=== PATIENT | female | born 1985 | race Two or more races ===

== ENCOUNTER 2020-04-02 17:17 | Inpatient (IN) | payer MEDICAID ==
[2020-04-02] MEDS ORDERED: ZOLPIDEM TARTRATE 10 MG TABLET PO PRN (20:15)
[2020-04-02] MEDS: HALOPERIDOL 10 MG TABLET PO SCH (22:16)
[2020-04-02 22:21] VITALS: BP 95/59
[2020-04-03 01:09] VITALS: BP 101/68
[2020-04-03] MEDS ORDERED: BENZOCAINE/MENTHOL LOZENGE PO PRN (09:00)
[2020-04-03] MEDS ORDERED: ONDANSETRON HCL 4 MG TABLET PO PRN (09:00)
[2020-04-03] MEDS ORDERED: MAG HYDROX/AL HYDROX/SIMETH ES 30 ML SUSPENSION UDCUP PO PRN (09:00)
[2020-04-03] MEDS ORDERED: PETROLATUM,WHITE 28 GM JELLY TP PRN (09:00)
[2020-04-03] MEDS ORDERED: OMEPRAZOLE 20 MG CAPSULE PO PRN (09:00)
[2020-04-03] MEDS ORDERED: BACITRACIN 28 GM OINTMENT TP PRN (09:00)
[2020-04-03] MEDS ORDERED: IBUPROFEN 600 MG TABLET PO PRN (09:00)
[2020-04-03] MEDS ORDERED: DOCUSATE SODIUM 100 MG CAPSULE PO PRN (09:00)
[2020-04-03] MEDS ORDERED: MAGNESIUM HYDROXIDE SUSPENSION 30 ML UDCUP PO PRN (09:00)
[2020-04-03] MEDS ORDERED: LOPERAMIDE HCL 2 MG CAPSULE PO PRN (09:00)
[2020-04-03] MEDS ORDERED: CloNIDine HCL 0.1 MG TABLET PO PRN (09:00)
[2020-04-03] MEDS: DIVALPROEX SODIUM 500 MG DR TABLET PO SCH ×2 (09:00→16:42)
[2020-04-03] MEDS ORDERED: ALBUTEROL SULFATE HFA 90 MCG/PUFF 8 GM INHALER IH PRN (09:00)
[2020-04-03] MEDS: LITHIUM CARBONATE 300 MG CAPSULE PO SCH ×2 (09:00→16:42)
[2020-04-03] MEDS ORDERED: DiphenhydrAMINE HCL 50 MG/ML VIAL ONE (16:25)
[2020-04-03] MEDS ORDERED: LORazepam 2 MG/ML VIAL ONE (16:25)
[2020-04-03] MEDS ORDERED: DiphenhydrAMINE HCL 50 MG/ML VIAL IM ONE (16:30)
[2020-04-03] MEDS ORDERED: HALOPERIDOL LACTATE 5 MG/ML VIAL IM ONE (16:30)
[2020-04-03] MEDS ORDERED: LORazepam 2 MG/ML VIAL IM ONE (16:30)
[2020-04-03 17:32] VITALS: BP 112/71
[2020-04-03] MEDS: HALOPERIDOL 10 MG TABLET PO SCH (21:00)
[2020-04-04] MEDS: LITHIUM CARBONATE 300 MG CAPSULE PO SCH ×2 (07:42→17:45)
[2020-04-04] MEDS: DIVALPROEX SODIUM 500 MG DR TABLET PO SCH ×2 (07:42→17:44)
[2020-04-04 08:19] VITALS: BP 114/73
[2020-04-04] MEDS: HALOPERIDOL 5 MG TABLET PO PRN (09:05)
[2020-04-04] MEDS: LORazepam 2 MG TABLET PO PRN (09:06)
[2020-04-04 16:17] VITALS: BP 117/69
[2020-04-04] MEDS: HALOPERIDOL 10 MG TABLET PO SCH (21:00)
[2020-04-05 01:44] VITALS: BP 110/65
[2020-04-05 07:28] LABS: BASOPHILS % (AUTO) 0.6 % (0.0-2.0); EOSINOPHILS % (AUTO) 1.4 % (1.0-6.0); HEMATOCRIT 35.1 % (36-46); HEMOGLOBIN 12.3 g/dL (12.0-16.0); LYMPHOCYTES # (AUTO) 1.3 K/uL (1.0-4.8); LYMPHOCYTES % (AUTO) 24.7 % (22.0-44.0); MEAN CORPUSCULAR HEMOGLOBIN 34.2 pg (26.0-34.0); MEAN CORPUSCULAR HGB CONC 35.1 G/dL (31.0-37.0); MEAN CORPUSCULAR VOLUME 97 fL (80-100); MONOCYTES # (AUTO) 0.4 K/uL (0.1-1.0); MONOCYTES % (AUTO) 7.3 % (2.0-9.0); NEUTROPHILS # (AUTO) 3.4 K/uL (1.8-7.7); PLATELET COUNT (AUTO) 346 K/uL (150-450); RED BLOOD CELL COUNT(AUTO) 3.61 MIL/uL (4.00-5.20); RED CELL DISTRIBUTION WIDTH 13.8 % (11.5-14.5)
[2020-04-05 08:07] LABS: ALANINE AMINOTRANSFERASE 35 U/L (12-78); ALBUMIN 3.2 g/dL (3.4-5.0); ALKALINE PHOSPHATASE 71 U/L (46-116); ANION GAP 7 mmol/L (8-16); ASPARTATE AMINOTRANSFERASE 18 U/L (15-37); BILIRUBIN,TOTAL 0.3 mg/dL (0.1-1.0); CARBON DIOXIDE 28 mmol/L (22-29); CHLORIDE 104 mmol/L (98-107); CREATINE KINASE, TOTAL ONLY 98 U/L (26-192); CREATININE 0.67 mg/dL (0.60-1.30); GLOMERULAR FILTR. RATE CALC > 60 mL/min (>60); GLUCOSE,RANDOM 94 mg/dL (70-110); PHOSPHORUS 3.9 mg/dL (2.5-4.9); POTASSIUM 4.5 mmol/L (3.5-5.1); SODIUM SERUM 139 mmol/L (136-145); TOTAL PROTEIN, SERUM 6.7 g/dL (6.4-8.2); UREA NITROGEN, BLOOD 22 mg/dL (7-18)
[2020-04-05 08:08] VITALS: BP 114/72
[2020-04-05] MEDS: LORazepam 2 MG TABLET PO PRN (08:08)
[2020-04-05] MEDS: LITHIUM CARBONATE 300 MG CAPSULE PO SCH ×2 (08:08→16:23)
[2020-04-05] MEDS: DIVALPROEX SODIUM 500 MG DR TABLET PO SCH (08:08)
[2020-04-05] MEDS: HALOPERIDOL 5 MG TABLET PO PRN (08:08)
[2020-04-05] MEDS ORDERED: RisperiDONE 3 MG TABLET PO SCH (09:00)
[2020-04-05 16:04] VITALS: BP 112/78
[2020-04-05] MEDS: VALPROIC ACID 250 MG/5 ML SYRUP UDCUP PO SCH (16:22)
[2020-04-05] MEDS: HALOPERIDOL 10 MG TABLET PO SCH (20:44)
[2020-04-05] MEDS: OLANZapine 5 MG RAPDIS TABLET PO SCH (20:45)
[2020-04-06 00:54] VITALS: BP 110/73
[2020-04-06 08:12] VITALS: BP 106/58
[2020-04-06] MEDS: LITHIUM CARBONATE 300 MG CAPSULE PO SCH ×2 (08:59→16:37)
[2020-04-06] MEDS: VALPROIC ACID 250 MG/5 ML SYRUP UDCUP PO SCH ×2 (08:59→16:37)
[2020-04-06] MEDS: LORazepam 2 MG TABLET PO PRN (11:35)
[2020-04-06 16:14] VITALS: BP 109/66
[2020-04-06] MEDS: HALOPERIDOL 10 MG TABLET PO SCH (20:31)
[2020-04-06] MEDS: OLANZapine 5 MG RAPDIS TABLET PO SCH (20:31)
[2020-04-07 00:36] VITALS: BP 102/62
[2020-04-07 08:15] VITALS: BP 109/60
[2020-04-07] MEDS ORDERED: HALOPERIDOL LACTATE 5 MG/ML VIAL ONE (08:40)
[2020-04-07] MEDS ORDERED: DiphenhydrAMINE HCL 50 MG/ML VIAL ONE (08:40)
[2020-04-07] MEDS ORDERED: HALOPERIDOL LACTATE 5 MG/ML VIAL IM ONE (08:45)
[2020-04-07] MEDS ORDERED: DiphenhydrAMINE HCL 50 MG/ML VIAL IM ONE (08:45)
[2020-04-07] MEDS ORDERED: LORazepam 2 MG/ML VIAL IM ONE (08:45)
[2020-04-07] MEDS: LORazepam 2 MG TABLET PO PRN (08:53)
[2020-04-07] MEDS: LITHIUM CARBONATE 300 MG CAPSULE PO SCH ×2 (08:53→17:00)
[2020-04-07] MEDS: VALPROIC ACID 250 MG/5 ML SYRUP UDCUP PO SCH ×2 (08:53→17:00)
[2020-04-07 16:20] VITALS: BP 110/70
[2020-04-07] MEDS: HALOPERIDOL 10 MG TABLET PO SCH (20:07)
[2020-04-07] MEDS: OLANZapine 5 MG RAPDIS TABLET PO SCH (20:07)
[2020-04-08 01:02] VITALS: BP 104/73
[2020-04-08] MEDS ORDERED: LORazepam 2 MG/ML VIAL IM ONE ×2 (08:00→19:30)
[2020-04-08] MEDS ORDERED: DiphenhydrAMINE HCL 50 MG/ML VIAL IM ONE ×2 (08:00→19:30)
[2020-04-08] MEDS ORDERED: HALOPERIDOL LACTATE 5 MG/ML VIAL IM ONE ×2 (08:00→19:30)
[2020-04-08 08:03] VITALS: BP 138/84
[2020-04-08] MEDS: LITHIUM CARBONATE 300 MG CAPSULE PO SCH ×3 (08:40→17:00)
[2020-04-08] MEDS: VALPROIC ACID 250 MG/5 ML SYRUP UDCUP PO SCH ×2 (09:00→17:00)
[2020-04-08 16:02] VITALS: BP 115/65
[2020-04-08 19:30] VITALS: BP 95/56
[2020-04-08] MEDS: HALOPERIDOL 10 MG TABLET PO SCH (20:24)
[2020-04-08] MEDS: OLANZapine 5 MG RAPDIS TABLET PO SCH (20:24)
[2020-04-09 08:31] VITALS: BP 109/68
[2020-04-09] MEDS: VALPROIC ACID 250 MG/5 ML SYRUP UDCUP PO SCH ×2 (09:00→16:35)
[2020-04-09] MEDS: LITHIUM CARBONATE 300 MG CAPSULE PO SCH ×2 (09:00→16:35)
[2020-04-09] MEDS ORDERED: HALOPERIDOL LACTATE 5 MG/ML VIAL IM ONE (13:30)
[2020-04-09] MEDS ORDERED: LORazepam 2 MG/ML VIAL IM ONE (13:30)
[2020-04-09] MEDS ORDERED: DiphenhydrAMINE HCL 50 MG/ML VIAL IM ONE (13:30)
[2020-04-09] MEDS: ACETAMINOPHEN 325 MG TABLET PO PRN (14:30)
[2020-04-09 16:07] VITALS: BP 107/62
[2020-04-09] MEDS: OLANZapine 5 MG RAPDIS TABLET PO SCH (20:08)
[2020-04-09] MEDS: HALOPERIDOL 10 MG TABLET PO SCH (20:08)
[2020-04-10 07:00] VITALS: BP 112/70
[2020-04-10 08:04] VITALS: BP 113/67
[2020-04-10] MEDS: VALPROIC ACID 250 MG/5 ML SYRUP UDCUP PO SCH ×2 (09:00→17:00)
[2020-04-10] MEDS: LITHIUM CARBONATE 300 MG CAPSULE PO SCH ×2 (09:00→17:00)
[2020-04-10] MEDS: LORazepam 2 MG TABLET PO PRN (11:03)
[2020-04-10 16:03] VITALS: BP 107/65
[2020-04-10] MEDS: OLANZapine 5 MG RAPDIS TABLET PO SCH (20:34)
[2020-04-10] MEDS: HALOPERIDOL 10 MG TABLET PO SCH (20:34)
[2020-04-11 01:27] VITALS: BP 106/68
[2020-04-11 08:12] VITALS: BP 115/72
[2020-04-11] MEDS: LITHIUM CARBONATE 300 MG CAPSULE PO SCH ×3 (09:00→17:00)
[2020-04-11] MEDS: VALPROIC ACID 250 MG/5 ML SYRUP UDCUP PO SCH ×3 (09:00→17:00)
[2020-04-11] MEDS: LORazepam 2 MG TABLET PO PRN (09:56)
[2020-04-11 17:30] VITALS: BP 109/68
[2020-04-11] MEDS: HALOPERIDOL 10 MG TABLET PO SCH (21:00)
[2020-04-11] MEDS: OLANZapine 5 MG RAPDIS TABLET PO SCH (21:00)
[2020-04-12 00:41] VITALS: BP 107/62
[2020-04-12] MEDS: VALPROIC ACID 250 MG/5 ML SYRUP UDCUP PO SCH ×2 (09:00→17:03)
[2020-04-12] MEDS: LITHIUM CARBONATE 300 MG CAPSULE PO SCH ×2 (09:00→16:58)
[2020-04-12] MEDS ORDERED: LORazepam 2 MG/ML VIAL ONE (09:06)
[2020-04-12] MEDS ORDERED: HALOPERIDOL LACTATE 5 MG/ML VIAL ONE (09:06)
[2020-04-12] MEDS ORDERED: DiphenhydrAMINE HCL 50 MG/ML VIAL ONE (09:06)
[2020-04-12 09:08] VITALS: BP 102/72
[2020-04-12] MEDS ORDERED: LORazepam 2 MG/ML VIAL IM ONE (09:15)
[2020-04-12] MEDS ORDERED: DiphenhydrAMINE HCL 50 MG/ML VIAL IM ONE (09:15)
[2020-04-12] MEDS ORDERED: HALOPERIDOL LACTATE 5 MG/ML VIAL IM ONE (09:15)
[2020-04-12 16:10] VITALS: BP 107/66
[2020-04-12] MEDS: LORazepam 2 MG TABLET PO PRN (16:50)
[2020-04-12] MEDS: OLANZapine 5 MG RAPDIS TABLET PO SCH (20:43)
[2020-04-12] MEDS: HALOPERIDOL 10 MG TABLET PO SCH (20:43)
[2020-04-13] MEDS ORDERED: DiphenhydrAMINE HCL 50 MG/ML VIAL IM ONE (07:30)
[2020-04-13] MEDS ORDERED: LORazepam 2 MG/ML VIAL IM ONE (07:30)
[2020-04-13] MEDS ORDERED: HALOPERIDOL LACTATE 5 MG/ML VIAL IM ONE (07:30)
[2020-04-13] MEDS: VALPROIC ACID 250 MG/5 ML SYRUP UDCUP PO SCH ×2 (09:00→16:51)
[2020-04-13] MEDS: LITHIUM CARBONATE 300 MG CAPSULE PO SCH ×2 (09:00→16:51)
[2020-04-13 17:29] VITALS: BP 109/67
[2020-04-13] MEDS: OLANZapine 5 MG RAPDIS TABLET PO SCH (20:30)
[2020-04-13] MEDS: HALOPERIDOL 10 MG TABLET PO SCH (20:30)
[2020-04-14 01:52] VITALS: BP 108/70
[2020-04-14 08:04] VITALS: BP 129/69
[2020-04-14] MEDS: VALPROIC ACID 250 MG/5 ML SYRUP UDCUP PO SCH ×2 (08:41→17:00)
[2020-04-14] MEDS: LITHIUM CARBONATE 300 MG CAPSULE PO SCH ×3 (08:41→19:34)
[2020-04-14 16:04] VITALS: BP 121/80
[2020-04-14] MEDS: ACETAMINOPHEN 325 MG TABLET PO PRN (18:17)
[2020-04-14] MEDS: LORazepam 2 MG TABLET PO PRN (19:33)
[2020-04-14] MEDS: HALOPERIDOL 10 MG TABLET PO SCH (20:08)
[2020-04-14] MEDS: OLANZapine 5 MG RAPDIS TABLET PO SCH (21:00)
[2020-04-15 08:34] VITALS: BP 123/76
[2020-04-15] MEDS: VALPROIC ACID 250 MG/5 ML SYRUP UDCUP PO SCH (09:00)
[2020-04-15] MEDS: LITHIUM CARBONATE 300 MG CAPSULE PO SCH (09:00)
[2020-04-15] MEDS ORDERED: VALP250C48 PO (11:09)
[2020-04-15] MEDS ORDERED: OLAN5TAB40 PO (11:09)
[2020-04-15] MEDS ORDERED: HALO10 PO (11:09)
[2020-04-15] MEDS ORDERED: LITH300C3 PO (11:09)
== END 2020-04-15 11:35 | disposition home or self-care (01) | DRG 750 ==
LOC: B3A 20:14
PROVIDERS: ADMIT Psychiatry & Neurology Psychiatry; ATTEND Psychiatry & Neurology Psychiatry
DX: F25.9 Schizoaffective disorder, unspecified (principal); M62.82 Rhabdomyolysis; F41.9 Anxiety disorder, unspecified; G47.00 Insomnia, unspecified; K59.00 Constipation, unspecified; F15.10 Other stimulant abuse, uncomplicated; E87.6 Hypokalemia; R74.02 Elevation of levels of lactic acid dehydrogenase [LDH]; K21.9 Gastro-esophageal reflux disease without esophagitis; Z59.0 Homelessness; Z79.899 Other long term (current) drug therapy
CPT/HCPCS: 80074; 83735; 84100; 87081; J1200; J1630; J2060

== ENCOUNTER 2020-04-30 13:09 | Inpatient (IN) | payer MEDICAID ==
[~2020-04-30 13:09] MED LIST: HALO10 PO; LITH300C3 PO; OLAN5TAB40 PO; VALP250C48 PO
[2020-04-30] MEDS ORDERED: ZOLPIDEM TARTRATE 10 MG TABLET PO PRN (14:45)
[2020-04-30] MEDS ORDERED: HALOPERIDOL 5 MG TABLET PO PRN (14:45)
[2020-04-30] MEDS ORDERED: LORazepam 2 MG/ML VIAL ONE (16:40)
[2020-04-30] MEDS ORDERED: HALOPERIDOL LACTATE 5 MG/ML VIAL ONE (16:40)
[2020-04-30] MEDS ORDERED: DiphenhydrAMINE HCL 50 MG/ML VIAL ONE (16:40)
[2020-04-30] MEDS ORDERED: LORazepam 2 MG/ML VIAL IM ONE (16:45)
[2020-04-30] MEDS ORDERED: HALOPERIDOL LACTATE 5 MG/ML VIAL IM ONE (16:45)
[2020-04-30] MEDS ORDERED: DiphenhydrAMINE HCL 50 MG/ML VIAL IM ONE (16:45)
[2020-04-30] MEDS: VALPROIC ACID 250 MG CAPSULE PO SCH (17:00)
[2020-04-30] MEDS: LITHIUM CARBONATE 300 MG CAPSULE PO SCH (17:00)
[2020-04-30] MEDS: HALOPERIDOL 10 MG TABLET PO SCH (17:00)
[2020-04-30 17:11] VITALS: BP 110/70
[2020-04-30] MEDS ORDERED: INFLUENZA VIRUS VACCINE QVS 2020-21 (6MO+)/PF 60 MCG/0.5 ML SYRINGE IM ONE (17:15)
[2020-04-30] MEDS ORDERED: BACITRACIN 28 GM OINTMENT TP PRN (23:30)
[2020-04-30] MEDS ORDERED: ONDANSETRON HCL 4 MG TABLET PO PRN (23:30)
[2020-04-30] MEDS ORDERED: BENZOCAINE/MENTHOL LOZENGE PO PRN (23:30)
[2020-04-30] MEDS ORDERED: ALBUTEROL SULFATE HFA 90 MCG/PUFF 8 GM INHALER IH PRN (23:30)
[2020-04-30] MEDS ORDERED: PETROLATUM,WHITE 28 GM JELLY TP PRN (23:30)
[2020-04-30] MEDS ORDERED: MAGNESIUM HYDROXIDE SUSPENSION 30 ML UDCUP PO PRN (23:30)
[2020-04-30] MEDS ORDERED: OMEPRAZOLE 20 MG CAPSULE PO PRN (23:30)
[2020-04-30] MEDS ORDERED: ACETAMINOPHEN 325 MG TABLET PO PRN (23:30)
[2020-04-30] MEDS ORDERED: DOCUSATE SODIUM 100 MG CAPSULE PO PRN (23:30)
[2020-04-30] MEDS ORDERED: CloNIDine HCL 0.1 MG TABLET PO PRN (23:30)
[2020-05-01 05:46] VITALS: BP 102/63
[2020-05-01 08:05] VITALS: BP 94/59
[2020-05-01] MEDS: VALPROIC ACID 250 MG CAPSULE PO SCH ×2 (08:46→15:53)
[2020-05-01] MEDS: HALOPERIDOL 10 MG TABLET PO SCH ×2 (08:46→15:54)
[2020-05-01] MEDS: LITHIUM CARBONATE 300 MG CAPSULE PO SCH ×2 (08:46→15:54)
[2020-05-01] MEDS: BACITRACIN 28 GM OINTMENT TP SCH ×2 (08:49→15:53)
[2020-05-01] MEDS: LORazepam 2 MG TABLET PO PRN ×2 (08:50→16:25)
[2020-05-01] MEDS: MAG HYDROX/AL HYDROX/SIMETH ES 30 ML SUSPENSION UDCUP PO PRN (13:38)
[2020-05-01] MEDS: LOPERAMIDE HCL 2 MG CAPSULE PO PRN ×2 (15:54→19:26)
[2020-05-01 16:12] VITALS: BP 101/61
[2020-05-01] MEDS: OLANZapine 5 MG RAPDIS TABLET PO SCH ×2 (19:47→19:48)
[2020-05-02 05:13] VITALS: BP 124/84
[2020-05-02] MEDS: VALPROIC ACID 250 MG CAPSULE PO SCH ×2 (08:16→16:07)
[2020-05-02] MEDS: LOPERAMIDE HCL 2 MG CAPSULE PO PRN ×2 (08:17→16:09)
[2020-05-02] MEDS: HALOPERIDOL 10 MG TABLET PO SCH ×2 (08:17→16:07)
[2020-05-02] MEDS: LITHIUM CARBONATE 300 MG CAPSULE PO SCH ×2 (08:17→16:07)
[2020-05-02 09:14] VITALS: BP 110/63
[2020-05-02] MEDS: BACITRACIN 28 GM OINTMENT TP SCH ×2 (09:33→16:11)
[2020-05-02 16:05] VITALS: BP 119/66
[2020-05-02] MEDS: LORazepam 2 MG TABLET PO PRN (16:08)
[2020-05-02] MEDS: OLANZapine 5 MG RAPDIS TABLET PO SCH (20:17)
[2020-05-03 01:29] VITALS: BP 112/76
[2020-05-03 07:37] LABS: BASOPHILS % (AUTO) 0.3 % (0.0-2.0); EOSINOPHILS % (AUTO) 1.1 % (1.0-6.0); HEMATOCRIT 37.5 % (36-46); LYMPHOCYTES # (AUTO) 1.3 K/uL (1.0-4.8); LYMPHOCYTES % (AUTO) 23.2 % (22.0-44.0); MEAN CORPUSCULAR HGB CONC 34.8 G/dL (31.0-37.0); MEAN CORPUSCULAR VOLUME 95 fL (80-100); MONOCYTES # (AUTO) 0.9 K/uL (0.1-1.0); MONOCYTES % (AUTO) 16.3 % (2.0-9.0); NEUTROPHILS # (AUTO) 3.4 K/uL (1.8-7.7); NEUTROPHILS % (AUTO) 59.1 % (40.0-70.0); PLATELET COUNT (AUTO) 309 K/uL (150-450); RED BLOOD CELL COUNT(AUTO) 3.95 MIL/uL (4.00-5.20); RED CELL DISTRIBUTION WIDTH 13.3 % (11.5-14.5)
[2020-05-03 07:46] LABS: HEMOGLOBIN A1C 4.8 % (3.8-5.6)
[2020-05-03 07:55] LABS: ALANINE AMINOTRANSFERASE 38 U/L (12-78); ALBUMIN 2.3 g/dL (3.4-5.0); ALKALINE PHOSPHATASE 95 U/L (46-116); ANION GAP 13 mmol/L (8-16); ASPARTATE AMINOTRANSFERASE 26 U/L (15-37); BILIRUBIN,TOTAL 0.2 mg/dL (0.1-1.0); CALCIUM, TOTAL 8.8 mg/dL (8.8-10.5); CARBON DIOXIDE 22 mmol/L (22-29); CHLORIDE 104 mmol/L (98-107); CHOL/HDL RATIO 2.6 (3.9-5.7); CHOLESTEROL 76 mg/dL (131-200); CREATININE 0.64 mg/dL (0.60-1.30); GLOMERULAR FILTR. RATE CALC > 60 mL/min (>60); GLUCOSE,RANDOM 94 mg/dL (70-110); HCG,QUANTITATIVE < 1 mIU/mL (0-6); HDL CHOLESTEROL 29 mg/dL (40-60); LDL CHOL (CALC.) 35 mg/dL (0-130); SODIUM SERUM 139 mmol/L (136-145); TOTAL PROTEIN, SERUM 6.7 g/dL (6.4-8.2); TRIGLYCERIDES 58 mg/dL (15-150); UREA NITROGEN, BLOOD 14 mg/dL (7-18)
[2020-05-03 08:14] VITALS: BP 110/66
[2020-05-03] MEDS: NICOTINE 14 MG/24 HOUR PATCH TD SCH (08:46)
[2020-05-03] MEDS: HALOPERIDOL 10 MG TABLET PO SCH ×2 (08:46→17:18)
[2020-05-03] MEDS: LITHIUM CARBONATE 300 MG CAPSULE PO SCH ×2 (08:48→17:18)
[2020-05-03] MEDS: VALPROIC ACID 250 MG CAPSULE PO SCH ×2 (08:48→17:18)
[2020-05-03] MEDS: LOPERAMIDE HCL 2 MG CAPSULE PO PRN (11:41)
[2020-05-03] MEDS: BACITRACIN 28 GM OINTMENT TP SCH ×2 (11:42→17:18)
[2020-05-03 17:19] VITALS: BP 89/56
[2020-05-03] MEDS ORDERED: POTASSIUM CHLORIDE 20 MEQ ER TABLET PO ONE (18:30)
[2020-05-03] MEDS: OLANZapine 5 MG RAPDIS TABLET PO SCH (20:25)
[2020-05-04 00:48] VITALS: BP_SYST 106; BP_SYST 78; BP_DIAS 60; BP_DIAS 63
[2020-05-04 08:26] VITALS: BP 104/58
[2020-05-04] MEDS: HALOPERIDOL 10 MG TABLET PO SCH ×3 (10:15→17:00)
[2020-05-04] MEDS: VALPROIC ACID 250 MG CAPSULE PO SCH ×3 (10:15→17:00)
[2020-05-04] MEDS: NICOTINE 14 MG/24 HOUR PATCH TD SCH (10:16)
[2020-05-04] MEDS: LITHIUM CARBONATE 300 MG CAPSULE PO SCH ×3 (10:16→17:00)
[2020-05-04] MEDS: LOPERAMIDE HCL 2 MG CAPSULE PO PRN ×2 (10:16→13:43)
[2020-05-04] MEDS: LORazepam 2 MG TABLET PO PRN (10:57)
[2020-05-04] MEDS: BACITRACIN 28 GM OINTMENT TP SCH (17:00)
[2020-05-04] MEDS: OLANZapine 5 MG RAPDIS TABLET PO SCH (20:20)
[2020-05-05 01:06] VITALS: BP 101/61
[2020-05-05 07:47] LABS: ANION GAP 6 mmol/L (8-16); CALCIUM, TOTAL 8.6 mg/dL (8.8-10.5); CARBON DIOXIDE 25 mmol/L (22-29); CHLORIDE 105 mmol/L (98-107); CREATININE 0.72 mg/dL (0.60-1.30); GLOMERULAR FILTR. RATE CALC > 60 mL/min (>60); GLUCOSE,RANDOM 92 mg/dL (70-110); POTASSIUM 3.7 mmol/L (3.5-5.1); SODIUM SERUM 136 mmol/L (136-145); UREA NITROGEN, BLOOD 13 mg/dL (7-18)
[2020-05-05 08:09] VITALS: BP 103/64
[2020-05-05] MEDS: LITHIUM CARBONATE 300 MG CAPSULE PO SCH ×2 (08:11→16:20)
[2020-05-05] MEDS: HALOPERIDOL 10 MG TABLET PO SCH ×2 (08:11→16:20)
[2020-05-05] MEDS: VALPROIC ACID 250 MG CAPSULE PO SCH ×2 (08:11→16:19)
[2020-05-05] MEDS: BACITRACIN 28 GM OINTMENT TP SCH ×2 (08:59→16:22)
[2020-05-05] MEDS: NICOTINE 14 MG/24 HOUR PATCH TD SCH (09:00)
[2020-05-05 16:00] VITALS: BP 100/64
[2020-05-05] MEDS: LORazepam 2 MG TABLET PO PRN (16:19)
[2020-05-05] MEDS: MAG HYDROX/AL HYDROX/SIMETH ES 30 ML SUSPENSION UDCUP PO PRN (16:39)
[2020-05-05] MEDS: OLANZapine 5 MG RAPDIS TABLET PO SCH (20:35)
[2020-05-06 01:01] VITALS: BP 102/74
[2020-05-06] MEDS: LOPERAMIDE HCL 2 MG CAPSULE PO PRN (04:12)
[2020-05-06 08:07] VITALS: BP 108/58
[2020-05-06 08:40] LABS: C.DIFF GDH ANTIGEN, Stool Negative (Negative); C.DIFF TOXINS A&B, Stool Negative (Negative)
[2020-05-06] MEDS: LITHIUM CARBONATE 300 MG CAPSULE PO SCH ×2 (08:48→16:43)
[2020-05-06] MEDS: VALPROIC ACID 250 MG CAPSULE PO SCH ×2 (08:48→16:42)
[2020-05-06] MEDS: HALOPERIDOL 10 MG TABLET PO SCH ×2 (08:49→16:42)
[2020-05-06] MEDS: BACITRACIN 28 GM OINTMENT TP SCH ×2 (08:49→16:43)
[2020-05-06] MEDS: NICOTINE 14 MG/24 HOUR PATCH TD SCH (08:49)
[2020-05-06 16:17] VITALS: BP 100/60
[2020-05-06] MEDS: OLANZapine 5 MG RAPDIS TABLET PO SCH (21:00)
[2020-05-07 01:15] VITALS: BP 102/68
[2020-05-07] MEDS: HALOPERIDOL 10 MG TABLET PO SCH ×2 (08:14→16:21)
[2020-05-07] MEDS: VALPROIC ACID 250 MG CAPSULE PO SCH ×2 (08:14→16:21)
[2020-05-07] MEDS: LITHIUM CARBONATE 300 MG CAPSULE PO SCH ×2 (08:14→16:21)
[2020-05-07 08:20] VITALS: BP 123/65
[2020-05-07] MEDS: NICOTINE 14 MG/24 HOUR PATCH TD SCH (09:00)
[2020-05-07] MEDS: BACITRACIN 28 GM OINTMENT TP SCH ×2 (09:00→16:28)
[2020-05-07 16:58] VITALS: BP 123/70
[2020-05-07] MEDS: OLANZapine 5 MG RAPDIS TABLET PO SCH (20:35)
[2020-05-07] MEDS: RIVAROXABAN 15 MG TABLET PO SCH (22:01)
[2020-05-08 00:39] VITALS: BP 114/73
[2020-05-08] MEDS: RIVAROXABAN 15 MG TABLET PO SCH ×2 (06:46→16:32)
[2020-05-08] MEDS: HALOPERIDOL 10 MG TABLET PO SCH ×2 (08:12→16:32)
[2020-05-08] MEDS: VALPROIC ACID 250 MG CAPSULE PO SCH ×2 (08:12→16:32)
[2020-05-08] MEDS: LITHIUM CARBONATE 300 MG CAPSULE PO SCH ×2 (08:12→16:32)
[2020-05-08 08:17] VITALS: BP 115/70
[2020-05-08] MEDS: BACITRACIN 28 GM OINTMENT TP SCH ×2 (08:43→16:33)
[2020-05-08] MEDS: NICOTINE 14 MG/24 HOUR PATCH TD SCH (09:00)
[2020-05-08] MEDS: IBUPROFEN 600 MG TABLET PO PRN (10:52)
[2020-05-08 16:01] VITALS: BP 115/69
[2020-05-08] MEDS: OLANZapine 5 MG RAPDIS TABLET PO SCH (20:28)
[2020-05-09 00:52] VITALS: BP 110/72
[2020-05-09] MEDS: RIVAROXABAN 15 MG TABLET PO SCH ×2 (06:28→16:06)
[2020-05-09 08:11] VITALS: BP 105/75
[2020-05-09] MEDS: HALOPERIDOL 10 MG TABLET PO SCH ×2 (08:48→16:06)
[2020-05-09] MEDS: NICOTINE 14 MG/24 HOUR PATCH TD SCH (08:48)
[2020-05-09] MEDS: VALPROIC ACID 250 MG CAPSULE PO SCH ×2 (08:48→16:05)
[2020-05-09] MEDS: LITHIUM CARBONATE 300 MG CAPSULE PO SCH ×2 (08:48→16:06)
[2020-05-09] MEDS: BACITRACIN 28 GM OINTMENT TP SCH ×2 (08:48→16:06)
[2020-05-09 16:05] VITALS: BP 103/62
[2020-05-09] MEDS: OLANZapine 5 MG RAPDIS TABLET PO SCH (20:36)
[2020-05-10 00:06] VITALS: BP 100/72
[2020-05-10] MEDS: RIVAROXABAN 15 MG TABLET PO SCH ×2 (06:43→15:50)
[2020-05-10 08:15] VITALS: BP 102/76
[2020-05-10] MEDS: NICOTINE 14 MG/24 HOUR PATCH TD SCH (08:31)
[2020-05-10] MEDS: LITHIUM CARBONATE 300 MG CAPSULE PO SCH ×2 (08:31→15:50)
[2020-05-10] MEDS: HALOPERIDOL 10 MG TABLET PO SCH ×2 (08:31→15:50)
[2020-05-10] MEDS: VALPROIC ACID 250 MG CAPSULE PO SCH ×2 (08:31→15:50)
[2020-05-10] MEDS: BACITRACIN 28 GM OINTMENT TP SCH ×2 (08:39→15:50)
[2020-05-10 16:05] VITALS: BP 106/65
[2020-05-10] MEDS: LORazepam 2 MG TABLET PO PRN (16:52)
[2020-05-10] MEDS: OLANZapine 5 MG RAPDIS TABLET PO SCH (21:00)
[2020-05-11 01:06] VITALS: BP 105/73
[2020-05-11] MEDS: IBUPROFEN 600 MG TABLET PO PRN (05:57)
[2020-05-11] MEDS: RIVAROXABAN 15 MG TABLET PO SCH ×2 (06:22→16:37)
[2020-05-11 08:02] VITALS: BP 109/67
[2020-05-11] MEDS: LITHIUM CARBONATE 300 MG CAPSULE PO SCH ×2 (08:10→16:37)
[2020-05-11] MEDS: HALOPERIDOL 10 MG TABLET PO SCH ×2 (08:10→16:37)
[2020-05-11] MEDS: VALPROIC ACID 250 MG CAPSULE PO SCH ×2 (08:10→16:37)
[2020-05-11] MEDS: NICOTINE 14 MG/24 HOUR PATCH TD SCH (09:00)
[2020-05-11 16:07] VITALS: BP 106/63
[2020-05-11] MEDS: LORazepam 2 MG TABLET PO PRN (18:45)
[2020-05-11] MEDS: OLANZapine 5 MG RAPDIS TABLET PO SCH (20:05)
[2020-05-12 00:48] VITALS: BP 116/71
[2020-05-12] MEDS: RIVAROXABAN 15 MG TABLET PO SCH ×2 (06:22→16:33)
[2020-05-12] MEDS: VALPROIC ACID 250 MG CAPSULE PO SCH ×2 (08:07→16:34)
[2020-05-12] MEDS: LITHIUM CARBONATE 300 MG CAPSULE PO SCH ×2 (08:07→16:34)
[2020-05-12] MEDS: NICOTINE 14 MG/24 HOUR PATCH TD SCH (08:07)
[2020-05-12] MEDS: HALOPERIDOL 10 MG TABLET PO SCH ×2 (08:07→16:34)
[2020-05-12 08:19] VITALS: BP 103/59
[2020-05-12] MEDS ORDERED: NICOTINE 14 MG/24 HOUR PATCH TD PRN (08:30)
[2020-05-12 16:15] VITALS: BP 100/64
[2020-05-12] MEDS: OLANZapine 5 MG RAPDIS TABLET PO SCH (21:00)
[2020-05-13 01:23] VITALS: BP 104/78
[2020-05-13] MEDS: RIVAROXABAN 15 MG TABLET PO SCH ×2 (06:41→17:17)
[2020-05-13 07:49] LABS: BASOPHILS % (AUTO) 0.5 % (0.0-2.0); EOSINOPHILS % (AUTO) 0.6 % (1.0-6.0); HEMATOCRIT 32.7 % (36-46); HEMOGLOBIN 11.2 g/dL (12.0-16.0); LYMPHOCYTES # (AUTO) 1.2 K/uL (1.0-4.8); LYMPHOCYTES % (AUTO) 16.8 % (22.0-44.0); MEAN CORPUSCULAR HEMOGLOBIN 32.8 pg (26.0-34.0); MEAN CORPUSCULAR HGB CONC 34.2 G/dL (31.0-37.0); MEAN CORPUSCULAR VOLUME 96 fL (80-100); MONOCYTES # (AUTO) 0.6 K/uL (0.1-1.0); MONOCYTES % (AUTO) 7.8 % (2.0-9.0); NEUTROPHILS # (AUTO) 5.3 K/uL (1.8-7.7); NEUTROPHILS % (AUTO) 74.3 % (40.0-70.0); PLATELET COUNT (AUTO) 441 K/uL (150-450); RED CELL DISTRIBUTION WIDTH 13.1 % (11.5-14.5)
[2020-05-13 08:04] LABS: ALANINE AMINOTRANSFERASE 19 U/L (12-78); ALBUMIN 1.9 g/dL (3.4-5.0); ALKALINE PHOSPHATASE 60 U/L (46-116); ANION GAP 6 mmol/L (8-16); ASPARTATE AMINOTRANSFERASE 15 U/L (15-37); BILIRUBIN,TOTAL 0.1 mg/dL (0.1-1.0); CALCIUM, TOTAL 8.4 mg/dL (8.8-10.5); CARBON DIOXIDE 30 mmol/L (22-29); CHLORIDE 104 mmol/L (98-107); CREATININE 0.67 mg/dL (0.60-1.30); GLOMERULAR FILTR. RATE CALC > 60 mL/min (>60); GLUCOSE,RANDOM 112 mg/dL (70-110); PHOSPHORUS 4.1 mg/dL (2.5-4.9); POTASSIUM 4.4 mmol/L (3.5-5.1); SODIUM SERUM 140 mmol/L (136-145); TOTAL PROTEIN, SERUM 6.7 g/dL (6.4-8.2); UREA NITROGEN, BLOOD 14 mg/dL (7-18)
[2020-05-13] MEDS: VALPROIC ACID 250 MG CAPSULE PO SCH ×2 (08:13→17:17)
[2020-05-13] MEDS: LITHIUM CARBONATE 300 MG CAPSULE PO SCH ×2 (08:13→17:17)
[2020-05-13] MEDS: HALOPERIDOL 10 MG TABLET PO SCH ×2 (08:13→17:17)
[2020-05-13 08:15] VITALS: BP 105/72
[2020-05-13 16:15] VITALS: BP 107/56
[2020-05-13] MEDS: OLANZapine 5 MG RAPDIS TABLET PO SCH (21:00)
[2020-05-14 00:44] VITALS: BP 101/74
[2020-05-14] MEDS: RIVAROXABAN 15 MG TABLET PO SCH ×2 (06:48→16:48)
[2020-05-14] MEDS: LITHIUM CARBONATE 300 MG CAPSULE PO SCH ×2 (08:08→16:48)
[2020-05-14] MEDS: LORazepam 2 MG TABLET PO PRN (08:08)
[2020-05-14] MEDS: HALOPERIDOL 10 MG TABLET PO SCH ×2 (08:08→16:48)
[2020-05-14] MEDS: VALPROIC ACID 250 MG CAPSULE PO SCH ×2 (08:08→16:48)
[2020-05-14 08:40] VITALS: BP 100/65
[2020-05-14 19:24] VITALS: BP 99/63
[2020-05-14] MEDS: OLANZapine 5 MG RAPDIS TABLET PO SCH (20:12)
[2020-05-15 01:06] VITALS: BP 101/73
[2020-05-15] MEDS: RIVAROXABAN 15 MG TABLET PO SCH ×2 (06:43→17:14)
[2020-05-15 08:06] VITALS: BP 107/69
[2020-05-15] MEDS: LORazepam 2 MG TABLET PO PRN (08:28)
[2020-05-15] MEDS: VALPROIC ACID 250 MG CAPSULE PO SCH ×2 (08:28→17:14)
[2020-05-15] MEDS: LITHIUM CARBONATE 300 MG CAPSULE PO SCH ×2 (08:28→17:14)
[2020-05-15] MEDS: HALOPERIDOL 10 MG TABLET PO SCH ×2 (08:28→17:14)
[2020-05-15 16:05] VITALS: BP 100/62
[2020-05-15] MEDS: OLANZapine 5 MG RAPDIS TABLET PO SCH (21:00)
[2020-05-16 03:26] VITALS: BP 107/62
[2020-05-16] MEDS: RIVAROXABAN 15 MG TABLET PO SCH (06:36)
[2020-05-16 07:36] LABS: HEMATOCRIT 30.2 % (36-46); HEMOGLOBIN 10.2 g/dL (12.0-16.0); MEAN CORPUSCULAR HEMOGLOBIN 32.7 pg (26.0-34.0); MEAN CORPUSCULAR HGB CONC 33.6 G/dL (31.0-37.0); MEAN CORPUSCULAR VOLUME 97 fL (80-100); PLATELET COUNT (AUTO) 439 K/uL (150-450); RED BLOOD CELL COUNT(AUTO) 3.11 MIL/uL (4.00-5.20); RED CELL DISTRIBUTION WIDTH 13.4 % (11.5-14.5)
[2020-05-16 07:48] LABS: ANION GAP 2 mmol/L (8-16); CALCIUM, TOTAL 8.4 mg/dL (8.8-10.5); CARBON DIOXIDE 32 mmol/L (22-29); CHLORIDE 106 mmol/L (98-107); CREATININE 0.59 mg/dL (0.60-1.30); GLOMERULAR FILTR. RATE CALC > 60 mL/min (>60); GLUCOSE,RANDOM 87 mg/dL (70-110); PHOSPHORUS 4.5 mg/dL (2.5-4.9); POTASSIUM 4.4 mmol/L (3.5-5.1); SODIUM SERUM 140 mmol/L (136-145); UREA NITROGEN, BLOOD 15 mg/dL (7-18)
[2020-05-16] MEDS: LITHIUM CARBONATE 300 MG CAPSULE PO SCH (08:00)
[2020-05-16] MEDS: VALPROIC ACID 250 MG CAPSULE PO SCH (08:00)
[2020-05-16] MEDS: HALOPERIDOL 10 MG TABLET PO SCH (08:00)
[2020-05-16 08:06] LABS: BAND NEUTROPHILS % (MANUAL) 1 % (0-5); EOSINOPHILS % (MANUAL) 1 % (1-6); LYMPHOCYTES % (MANUAL) 18 % (22-44); MONOCYTES % (MANUAL) 6 % (2-9); SEGMENTED NEUTROPHILS % 74 % (40-70)
[2020-05-16 08:39] VITALS: BP 109/60
[2020-05-16] MEDS ORDERED: RIVA15T PO (12:03)
[2021-05-29] MEDS ORDERED: RIVAROXABAN 20 MG TABLET PO SCH (17:00)
== END 2020-05-16 14:05 | disposition home or self-care (01) | DRG 750 ==
LOC: B3A 16:31
PROVIDERS: ADMIT Psychiatry & Neurology Psychiatry; ATTEND Psychiatry & Neurology Psychiatry
DX: F25.9 Schizoaffective disorder, unspecified (principal); K21.9 Gastro-esophageal reflux disease without esophagitis; K59.00 Constipation, unspecified; F41.9 Anxiety disorder, unspecified; G47.00 Insomnia, unspecified; F15.10 Other stimulant abuse, uncomplicated; Z79.899 Other long term (current) drug therapy; Z28.82 Immunization not carried out because of caregiver refusal
CPT/HCPCS: 83036; 83735; 84100; 85007; 87045; 87324; 87449; J1200; J1630; J2060

== ENCOUNTER 2020-05-07 10:45 | Emergency (ER) | payer MEDICAID, OTHER ==
[~2020-05-07] VITALS: Ht 165.1 cm; Wt 61.8 kg
[2020-05-07 11:50] LABS: BASOPHILS % (AUTO) 0.4 % (0.0-2.0); EOSINOPHILS % (AUTO) 0.2 % (1.0-6.0); HEMATOCRIT 32.8 % (36-46); HEMOGLOBIN 11.1 g/dL (12.0-16.0); LYMPHOCYTES # (AUTO) 1.3 K/uL (1.0-4.8); LYMPHOCYTES % (AUTO) 15.7 % (22.0-44.0); MEAN CORPUSCULAR HEMOGLOBIN 32.1 pg (26.0-34.0); MEAN CORPUSCULAR HGB CONC 33.8 G/dL (31.0-37.0); MEAN CORPUSCULAR VOLUME 95 fL (80-100); MONOCYTES # (AUTO) 0.9 K/uL (0.1-1.0); NEUTROPHILS # (AUTO) 6.1 K/uL (1.8-7.7); NEUTROPHILS % (AUTO) 72.7 % (40.0-70.0); PLATELET COUNT (AUTO) 239 K/uL (150-450); RED BLOOD CELL COUNT(AUTO) 3.45 MIL/uL (4.00-5.20); RED CELL DISTRIBUTION WIDTH 13.1 % (11.5-14.5)
[2020-05-07 12:00] LABS: ANION GAP 2 mmol/L (8-16); CALCIUM, TOTAL 8.1 mg/dL (8.8-10.5); CARBON DIOXIDE 31 mmol/L (22-29); CHLORIDE 105 mmol/L (98-107); CREATININE 0.65 mg/dL (0.60-1.30); GLOMERULAR FILTR. RATE CALC > 60 mL/min (>60); GLUCOSE,RANDOM 113 mg/dL (70-110); POTASSIUM 4.6 mmol/L (3.5-5.1); SODIUM SERUM 138 mmol/L (136-145); UREA NITROGEN, BLOOD 13 mg/dL (7-18)
[2020-05-07 12:07] VITALS: BP 112/63
[2020-05-07 12:11] LABS: ALANINE AMINOTRANSFERASE 15 U/L (12-78); ALBUMIN 1.9 g/dL (3.4-5.0); ALKALINE PHOSPHATASE 64 U/L (46-116); ASPARTATE AMINOTRANSFERASE 13 U/L (15-37); BILIRUBIN,TOTAL 0.2 mg/dL (0.1-1.0); D-DIMER 3.54 mg/L FEU (0.00-0.50); PROTHROMBIN TIME 10.9 SEC (9.4-11.6); TOTAL PROTEIN, SERUM 6.2 g/dL (6.4-8.2)
[2020-05-07] MEDS ORDERED: RIVAROXABAN 15 MG TABLET PO ONE (12:30)
== END 2020-05-07 13:16 | disposition home or self-care (01) ==
LOC: EMS 10:53
DX: I82.4Y2 Acute embolism and thrombosis of unspecified deep veins of left proximal lower extremity (principal); F17.210 Nicotine dependence, cigarettes, uncomplicated; Z91.030 Bee allergy status
CPT/HCPCS: 85379; 93971